=== PATIENT | female | born 1935 | race Caucasian/White ===

== ENCOUNTER → 2018-06-04 | Outpatient (REF) | payer MEDICARE ==
[~2018-06-04] MED LIST: ALENDRONATE35 MG PO; AMOXICILLIN/PO500 MG PO; ASPIRIN 8181 MG PO; AUGMENTIN875TAB OR; BABY ASPIRIN81 MG PO; BOOSTRIX IM; CALCIUM 6001 TAB PO; CALCIUM CHEL1 CAP OR; CIPROFLOXACN500 MG PO; DESOXIMETAS0.05 % EX; FISH OIL1000 MG PO; FLEXERIL PO; FLEXERIL5 M1 PO; FLUZONE SPLT1 M1 IM; IRON325 M1; KEFLEX500 MG PO; LISINOPRIL5 MG PO; LORTAB 10 PO; MUPIROCIN2 % EX; NAPROSYN500 MG PO; NORVASC PO; NORVASC5 MG PO; PREDNISONE1 MG; PREDNISONE1 MG PO; PREDNISONE10 MG PO; PREDNISONE20 MG PO; PREDNISONE5 MG PO; RECLAST5 MG/100 M IV; RED YEAST XX; ROCEPHIN 1 GM1 GM IM; SMZ-TMP DS1 TAB PO; TRAMADOL HCL50 MG PO; VITAMIN D2000 UNI2 PO; VITAMIN E100 UNI1 OR
[2018-06-04 09:42] LABS: HEMATOCRIT 40.8 % (37.0-47.0); HEMOGLOBIN 12.9 g/dl (12.0-16.0); IMMATURE GRANULOCYTES 0.5 % (0.0-5.0); MEAN CELL VOLUME 91.7 fL CALC (80.0-100.0); MEAN CORPUSCULAR HGB CONC 31.6 g/L CALC (32.0-36.0); NEUT# 7.33 thou/uL (2.00-7.15); RED BLOOD COUNT 4.45 mill/uL (4.20-5.60); RED CELL DISTRI WIDTH 13.4 % (11.5-15.5)
[2018-06-04 10:07] LABS: BILIRUBIN, TOTAL 0.5 mg/dL (0.0-1.4); CREATININE 1.1 mg/dL (0.5-1.0); POTASSIUM 4.3 mmol/l (3.5-5.1); TOTAL PROTEIN 7.6 g/dL (6.3-8.2)
== END | disposition home or self-care (01) ==
LOC: BD 08:56
PROVIDERS: ATTEND Nurse Practitioner Family
DX: Z13.820 Encounter for screening for osteoporosis (principal); I10 Essential (primary) hypertension; N95.1 Menopausal and female climacteric states

== ENCOUNTER 2020-08-27 15:49 | Inpatient (IN) | payer MEDICARE ==
[~2020-08-27] VITALS: Ht 172.7 cm; Wt 85.0 kg
--- NOTE | 2020-08-27 15:49 | NUR ---
PATIENT TO ROOM VIA EMS AND PHYSICIAN AT BEDSIDE FOR EVAL
--- NOTE | 2020-08-27 16:00 | NUR ---
PT REPORTS GETTING UP TO BR TODAY AND FELL DOWN, PT UNSURE OF SYNCOPAL EPISODE. VOMITING X 3 DAYS, DIZZINESS/FAINT. PT ALERT AND ORIENTED X 2. SKIN HOT AND DRY. FEVER @ 101 TEMPORAL. RESP EVEN AND UNLABORED. PERRL. LS CTA.
--- NOTE | 2020-08-27 16:15 | NUR ---
STRAIGHT CATH PERFORMED VIA STERILE TECHNIQUE, PT TOLERATED WELL. URINE SPECIMEN OBTAINED.
[2020-08-27 16:17] LABS: HEMATOCRIT 41.8 % (37.0-47.0); HEMOGLOBIN 13.4 g/dl (12.0-16.0); IMMATURE GRANULOCYTES 0.6 % (0.0-5.0); MEAN CELL VOLUME 89.7 fL CALC (80.0-100.0); MEAN CORPUSCULAR HGB 28.8 pG CALC (26.0-32.0); MEAN CORPUSCULAR HGB CONC 32.1 g/dL CAL (32.0-36.0); NEUT# 10.74 thou/uL (2.00-7.15); RED BLOOD COUNT 4.66 mill/uL (4.20-5.60); RED CELL DISTRI WIDTH 14.3 % (11.5-15.5)
[2020-08-27 16:22] LABS: URINE BLOOD DIPSTICK LARGE (NEGATIVE); URINE GLUCOSE - DIPSTICK NEGATIVE (NEGATIVE); URINE KETONE 15 mg/dL (NEGATIVE); URINE LEUK ESTERASE NEGATIVE (NEGATIVE); URINE PROTEIN - DIPSTICK 100 mg/dL (NEG-TRACE); URINE SPECIFIC GRAVITY >=1.030
[2020-08-27 16:26] LABS: URINE BILIRUBIN - DIPSTICK SMALL (NEGATIVE); URINE NITRITE - DIPSTICK NEGATIVE (Negative)
[2020-08-27 16:27] LABS: URINE COLOR DK. YELLOW
[2020-08-27 16:33] LABS: URINE SQUAMOUS EPITHELIAL CELL FEW EPI/hpf (0-FEW); URINE WBC 0-2 WBC/hpf (0-5)
[2020-08-27 16:33] LABS: ALBUMIN 3.9 g/dL (3.2-5.0); CREATININE 1.1 mg/dL (0.5-1.0); TOTAL PROTEIN 7.6 g/dL (6.3-8.2)
[2020-08-27 16:35] LABS: BILIRUBIN, TOTAL 0.9 mg/dL (0.0-1.4); POTASSIUM 3.5 mmol/l (3.5-5.1)
--- NOTE | 2020-08-27 16:35 | NUR ---
NIH PERFORMED SCORED AT 0 WITH NO NEURO DEFICITS. PT AND DO REPORT CONTINUED UNSTEADY GAIT OVER THE LAST [address] PRESLEY NOTIFIED.
--- NOTE | 2020-08-27 17:35 | NUR ---
PT RESTING ON STRETCHER IN NAD. RESP EVEN AND UNLABORED. SKIN HOT AND DRY. DISCUSSED WITH PT CONT WAIT TIME FOR RESULTS. VERBALIZED UNDERSTANDING. DENIES ANY NEEDS. TRAFFIC RATE COMPUTER IN PLACE. CALL LIGHT WITHIN REACH.
--- NOTE | 2020-08-27 18:00 | NUR ---
PT TEMP RECHECK OF 98.6-- DR PRESLEY NOTIFIED.
--- NOTE | 2020-08-27 18:30 | NUR ---
PT'S O2 SAT RANGING FROM 92-94% ON RA. PT VOICES NO COMPLAINTS OF SOB AT THIS TIME. DR PRESLEY NOTIFIED AND ORDER FOR ABG PLACED.
--- NOTE | 2020-08-27 19:37 | NUR ---
REPORT GIVEN TO GEETHA, MEDICAL PATIENT BEING HOUSED IN ICU. LEAVING ER IN NO DISTRESS. ALERT, ORIENTED VSS.
[2020-08-27 20:00] VITALS: BP 119/58
--- NOTE | 2020-08-27 21:25 | NUR ---
PATIENT ADMITTED FROM ER VIA STRETCHER WITH ER STAFF IN ATTENDANCE. PATIENT IS ABLE TO TRANSFER HERSELF INTO THE BED. PATIENT IS AWAKE ALERT AND ORIENTEDX3. ADMITTED FOR SYNCOPE, WITH NEAR FALL AT HOME, FEVER AND ELEVATED LIVER ENZYMES. PATIENT STATES THAT HER SX STARTED ON LAST FRIDAY WITH MULTIPLE EPISODES OF VOMITTING THAT HAS SINCE STOPPED FOLLOWED BY EXTREME WEAKNESS. TODAY AT HOME TRYING TO GO TO THE SHE SLID HERSELF TO THE FLOOR DUE TO SEVERE WEAKNESS-NO LOC, NO HIT ON THE HEAD. 911 WAS CALLED. PATIENT LIVES WITH HER ELDERLY . PATIENT ON TELE-INITIAL READING SR-76. IVF NS HUNG AND INFUSING VIA RAC AT 100CC/HR. SALINE LOCK TO LAC INTACT-FLUSHED PER PROTOCOL. FEBRILE IN ER BUT AFERILE AT THISTIME. PATIENT DENIES ANY NAUSEA AT THIS TIME. STATES THAT HER LAST BM WAS ALSO -NO DIARRHEA JUST REGULAR BM. ABD IS SOFT WITH ACTIVE BS. LUNGS ARE CLEAR. PATIENT DECLINES ANY DINNER AT THISTIME. JUST TAKING PO FLUIDS. PATIENT ORIENTED TO ROOM AND SURROUNDINGS. SAFETY PRECAUTIONS REINFORCED. CALL LIGHT IN REACH. WILL CONT TO MONITOR.
--- NOTE | 2020-08-27 23:52 | NUR ---
PATIENT RESTING IN BED POSITIIONED ON LEFT SIDE WITH EYES CLOSED. RESPS ARE EVEN AND UNLABORED. ZOSYN HUNG AND INFUSING VIA RAC SITE. TELE MONITOR IN PLACE. CALL LIGHT IN REACH. WILL CONT TO MONITOR.
[2020-08-28] VITALS: BP 107/52
--- NOTE | 2020-08-28 03:02 | NUR ---
BED ALARM GOING OFF-PATIENT CONT TO BE RESTLESS IN BED. PATIENT TURNED AND REPOSITIONED ON LEFT SIDE. IV TO LEFT WRIST REMAINS INTACT WITH IVF 1/2NS PATENT AND INFUSING AT 50CC/HR. MOREIRA REMAINS PATENT AND DRAINING YELLOW URINE. BED ALARM BACK IN PLACE. CALL LIGHT IN REACH. WILL CONT TO MONITOR.
--- NOTE | 2020-08-28 03:04 | NUR ---
PATIENT CONT TO REST IN BED WITH EYES CLOSED AND RESPS EVEN AND UNLABORED. IVF PATENT AND INFUSING VIA RIGHT AC SITE AT 100CC/HR. TELE MONITOR IN PLACE. CALL LIGHT IN REACH. WILL CONT TO MONITOR.
[2020-08-28 04:00] VITALS: BP 141/60
--- NOTE | 2020-08-28 04:42 | NUR ---
PATIENT ASSISTED OOB TO THE BSC TO VOID 300CC OF DARK JOSÉ MIGUEL URINE. UNSTEADY ON HER FEET. ASSISTED BACK INTO BED. TELE MONITOR IN PLACE-LAST READING SR-92 OCC PVC'S. DENIES ANY CHEST PAIN OR SOB. IVF NS PATENT AND INFUSING VIA RAC SITE AT 100CC/HR. SITE REMAINS HEALTHY AT THIS TIME. SAFETY PRECAUTIONS REINFORCED. CALL LIGHT IN REACH. WILL CONT TO MONITOR
[2020-08-28 05:09] LABS: HEMATOCRIT 40.6 % (37.0-47.0); HEMOGLOBIN 12.8 g/dl (12.0-16.0); IMMATURE GRANULOCYTES 0.4 % (0.0-5.0); MEAN CELL VOLUME 92.5 fL CALC (80.0-100.0); MEAN CORPUSCULAR HGB 29.2 pG CALC (26.0-32.0); MEAN CORPUSCULAR HGB CONC 31.5 g/dL CAL (32.0-36.0); NEUT# 11.74 thou/uL (2.00-7.15); RED BLOOD COUNT 4.39 mill/uL (4.20-5.60); RED CELL DISTRI WIDTH 14.3 % (11.5-15.5)
[2020-08-28 05:21] LABS: ANION GAP 15 (6-22 (CALC)); BUN 21 mg/dL (8-23); BUN/CREATININE RATIO 23 (12-20 (CALC)); CARBON DIOXIDE 21 mmol/l (22-30); CHLORIDE 102 mmol/l (95-108); CREATININE 0.9 mg/dL (0.5-1.0); GFR 60 ML/MIN (>=60 (CALC)); GFR FOR AFR.AMER. > 60 ML/MIN (>=60 (CALC)); POTASSIUM 3.3 mmol/l (3.5-5.1); SODIUM 134 mmol/l (137-146)
--- NOTE | 2020-08-28 07:00 | NUR ---
PT REPORT RECEIVED FROM NIGHT NURSEGEETHA.
--- NOTE | 2020-08-28 08:00 | NUR ---
PT WAS FOUND RESTING IN BED;PT IS A&OX3;VS AND ASSESSMENT WERE COMPLETED;PT HAD NO REPORTS OF PAIN AT THIS TIME;HEART SOUNDS ARE REGULAR IN RATE AND RHYTHM;TELE IS IN PLACE;LUNG SOUNDS ARE CLEAR;RESPIRATIONS ARE EVEN AND UNLABORED ON RA;#20G IV IN LAC IS EMS SITE, SL, PATENT AND FREE OF COMPLICATIONS AT THIS TIME;#20G IV IN RAC IS RUNNING NS@100ML/HR;IV SITE APPEARS FREE OF COMPLICATIONS AT THIS TIME;PT SKIN INTACT;NO EDEMA NOTED;SAFETY PRECAUTIONS IN PLACE;CALL LIGHT WITHIN REACH;BED IN LOWEST POSITION;WILL CONTINUE TO MONITOR.
[2020-08-28 10:45] VITALS: BP 118/63
--- NOTE | 2020-08-28 12:00 | NUR ---
PT WAS FOUND RESTING IN BED EATING LUNCH;PT IS ALERT AND ORIENTED AND REPORTING NO PAIN AT THIS TIME;TELE IS IN PLACE;SAFETY PRECAUTIONS IN PLACE;CALL LIGHT WITHIN REACH;BED IN LOWEST POSITION;WILL CONTINUE TO MONITOR.
[2020-08-28] MEDS ORDERED: FISH OIL1 CAP PO (13:12)
[2020-08-28] MEDS ORDERED: CALCIUM600 M1 PO (13:13)
--- NOTE | 2020-08-28 13:25 | NUR ---
PRELIM BLOOD CX RESULTS SHOW GRAM NEGATIVE RODS IN 2/4 VIALS. REPORTED TO [facility]. PT IS ON ZITHROMAX AND ZOSYN. WILL F/U WITH FINAL
--- NOTE | 2020-08-28 14:17 | NUR ---
PT TRANSPORTED VIA STRETCHER IN STABLE CONDITION TO CT ACCOMPANIED BY STAFF
[2020-08-28 14:35] VITALS: BP 119/66
--- NOTE | 2020-08-28 16:00 | NUR ---
PT WAS HELPED TO BSC;PT AT BEDSIDE;CALL LIGHT WITHIN REACH;TELE IN PLACE;#20G IV IN LAC IS RUNNING NS@100ML/HR;IV SITE APPEARS FREE OF COMPLICATIONS AT THIS TIME;SAFETY PRECAUTIONS IN PLACE;WILL CONTINUE TO MONITOR.
--- NOTE | 2020-08-28 18:30 | NUR ---
PT VS WERE TAKEN AND PT WAS FOUND TO HAVE AN O2 SAT OF 87%;PT WAS EXPERIENCING NO LABORED RESPIRATIONS OR DIFFICULTY BREATHING AT THE TIME;PLACED PT ON O2 VIA NC@2L;WILL CONTINUE TO MONITOR O2 AND TITRATE NEEDED.
[2020-08-28 19:00] VITALS: BP 120/62
--- NOTE | 2020-08-28 19:15 | NUR ---
WALKED INTO PT ROOM AND FOUND PT OUT OF BED ATTEMPTED TO PIVOT TO BSC;QUICKLY RAN TO PT TO ASSIST WITH TRANSFER AND WAS ABLE TO HOLD PT HER LEGS WEAKENED AND ASSISTED PT TO SLOWLY LOWER TO THE FLOOR;PT WAS INCONTINENT OF STOOL AT THE TIME AND WAS TRYING TO MAHER TO THE BSC WITHOUT ASSISTANCE;PT IS REPORTING NO PAIN OR INJURIES;NO INJURIES OBSERVED ON PT WELL;CALLED FOR ASSISTANCE AND WE WERE ABLE TO ASSIST PT UP TO COMMODE TO FINISH BM;PT WAS RE-EDUCATED ON SAFETY AND FALL PRECAUTIONS;PT ENCOURAGED TO CALL FOR ASSISTANCE EACH AND EVERY TIME;BED ALARM WAS ALSO TURNED ON AT THIS TIME.
--- NOTE | 2020-08-28 20:10 | NUR ---
PHYSICAL ASSESMENT COMPLETE. PT CURRENTLY DENIES PAIN OR DISCOMFORT. SCHEDULED MEDICATIONS AND PRN MEDICATION ADMINISTERED, SEE E-MAR. PT DENIES ANY NEEDS AT THIS TIME. PLAN OF CARE REVIEWED, PT DENIES QUESTIONS, VERBALIZES UNDERSTANDING. ITEMS WITHIN REACH, BED LOCKED IN LOW POSITION W/ BEDRAILS UP X2. CALL RODRIGUEZ WITHIN REACH, AGREES TO CALL PRN.
--- NOTE | 2020-08-29 00:26 | NUR ---
PT RESTING IN BED, NO SIGNS OF DISTRESS NOTED, RESP EVEN AND UNLABORED. PT VOICES NO NEEDS OR COMPLAINTS AT THIS TIME. CALL LIGHT IN REACH, CONTINUE TO MONITOR.
[2020-08-29 04:00] VITALS: BP 84/49
--- NOTE | 2020-08-29 04:42 | NUR ---
PT LAYING IN BED WITH EYES CLOSED, APPEARS TO BE SLEEPING, APPEARS COMFORTABLE AND IN NO DISTRESS. RESPIRATIONS REGULAR AND UNLABORED. ITEMS REMAIN WITHIN REACH, CALL RODRIGUEZ REMAINS WITHIN REACH. BED REMAINS LOCKED AND IN LOW POSITION WITH BEDRAILS UP X2. WILL CONTINUE TO MONITOR.
[2020-08-29 04:54] LABS: MEAN CELL VOLUME 92.8 fL CALC (80.0-100.0); MEAN CORPUSCULAR HGB 28.9 pG CALC (26.0-32.0); MEAN CORPUSCULAR HGB CONC 31.2 g/dL CAL (32.0-36.0); RED BLOOD COUNT 3.49 mill/uL (4.20-5.60); RED CELL DISTRI WIDTH 14.3 % (11.5-15.5)
[2020-08-29 04:55] LABS: HEMATOCRIT 32.4 % (37.0-47.0); HEMOGLOBIN 10.1 g/dl (12.0-16.0)
[2020-08-29 05:16] LABS: ALKALINE PHOSPHATASE 102 u/l (38-126); BUN 18 mg/dL (8-23); BUN/CREATININE RATIO 20 (12-20 (CALC)); CHLORIDE 101 mmol/l (95-108); CREATININE 0.9 mg/dL (0.5-1.0); GFR 60 ML/MIN (>=60 (CALC)); GFR FOR AFR.AMER. > 60 ML/MIN (>=60 (CALC)); POTASSIUM 3.1 mmol/l (3.5-5.1); SGOT/AST 67 u/l (9-36); SODIUM 132 mmol/l (137-146)
[2020-08-29 05:17] LABS: ALBUMIN 2.5 g/dL (3.2-5.0); ANION GAP 8 (6-22 (CALC)); BILIRUBIN, TOTAL 0.5 mg/dL (0.0-1.4); CARBON DIOXIDE 26 mmol/l (22-30); TOTAL PROTEIN 5.4 g/dL (6.3-8.2)
--- NOTE | 2020-08-29 07:50 | NUR ---
WENT TO CHANGE IV FLUIDS. IV SITE STARTED TO KINK UNABLE TO FIX. TOOK IV SITE OUT.
[2020-08-29 08:20] VITALS: BP 108/53
--- NOTE | 2020-08-29 08:20 | NUR ---
ASSESSMENT IS COMPLETED IV SITE STARTED COMING OUT WILL CHANGE . HR IS REG,PULSES ARE STRONG X4, ABD IS SOFT WITH ACTIVE BS. BREATH SOUNDS ARE CLEAR,BILATERALLY. TELE MONITOR IN PLACE.
[2020-08-29 10:56] VITALS: BP 91/55
--- NOTE | 2020-08-29 12:30 | NUR ---
PT HAS BEEN RELAXING IN BED WITH NO DISTRESS NOTED. IV SITE IS FREE FROM REDNESS OR EDEMA.
[2020-08-29 15:20] VITALS: BP 91/55
--- NOTE | 2020-08-29 16:30 | NUR ---
PT IS RELAXING IN BED WITH NO DISTRESS NOTED. IV SITE IS FREE FROM REDNESS OR EDEMA.
[2020-08-29 19:00] VITALS: BP 96/60
[2020-08-30] VITALS: BP 100/59
[2020-08-30 04:00] VITALS: BP 95/54
[2020-08-30 04:52] LABS: HEMOGLOBIN 9.2 g/dl (12.0-16.0); MEAN CELL VOLUME 90.9 fL CALC (80.0-100.0); MEAN CORPUSCULAR HGB 28.8 pG CALC (26.0-32.0); MEAN CORPUSCULAR HGB CONC 31.7 g/dL CAL (32.0-36.0); RED BLOOD COUNT 3.19 mill/uL (4.20-5.60); RED CELL DISTRI WIDTH 14.4 % (11.5-15.5)
[2020-08-30 05:10] LABS: ALBUMIN 2.4 g/dL (3.2-5.0); ALKALINE PHOSPHATASE 107 u/l (38-126); ANION GAP 5 (6-22 (CALC)); BILIRUBIN, TOTAL 0.3 mg/dL (0.0-1.4); BUN 15 mg/dL (8-23); BUN/CREATININE RATIO 16 (12-20 (CALC)); CARBON DIOXIDE 24 mmol/l (22-30); CHLORIDE 107 mmol/l (95-108); CREATININE 0.9 mg/dL (0.5-1.0); GFR 60 ML/MIN (>=60 (CALC)); GFR FOR AFR.AMER. > 60 ML/MIN (>=60 (CALC)); POTASSIUM 3.2 mmol/l (3.5-5.1); SGOT/AST 58 u/l (9-36); SODIUM 133 mmol/l (137-146); TOTAL PROTEIN 5.1 g/dL (6.3-8.2)
--- NOTE | 2020-08-30 07:37 | NUR ---
PT IS CONCERNED ABOUT GOING HOME , INFORMED THAT SHE NEEDS TO SPEAK WITH MD ABOUT HAVING PT COME AND SEE HER.
[2020-08-30 07:50] VITALS: BP 109/51
--- NOTE | 2020-08-30 07:50 | NUR ---
ASSESSMENT IS COMPLETED: IV SITE IS FREE FROM REDNESS OR EDEMA. HR IS REG,PULSES ARE STRONG X4, ABD IS SOFT WITH ACTIVE BS. BREATH SOUNDS ARE WHEEZING , PT C/O "TOO MUCH FLUID". O2 @ 2LITERS WITH NC. TELE MONITOR IN PLACE.
--- NOTE | 2020-08-30 08:05 | NUR ---
PT C/O "FEELING WHEEZY, AND THE WATER IS IN HER CHEST" TURNED IV FLUIDS DOWN TO KVO
--- NOTE | 2020-08-30 10:15 | NUR ---
SPOKE WITH DR LEVINE RE: PT C/O FEELING WHEEZING AND FULL OF WATER IN HER CHEST. LASIX WAS ORDERED AND GIVEN AT 1030
[2020-08-30] MEDS ORDERED: Levaquin PO (10:28)
[2020-08-30 11:00] VITALS: BP 106/73
--- NOTE | 2020-08-30 11:00 | NUR ---
PT DID GET UP TO VOID 300 AFTER LASIX WAS GIVEN. AT 1215 PT WAS READY TO GO HOME. NO MORE WHEEZING NOTED. AND ABLE TO VOID.
--- NOTE | 2020-08-30 12:30 | NUR ---
IV SITE REMOVED AND CATHETER INTACT. NO REDNESS OR EDEMA. TELE MONITOR TAKEN OFF. DISCHARGE INSTRUCTIONS GIVEN AND VERBALIZED UNDERSTANDING.
--- NOTE | 2020-08-30 13:00 | NUR ---
DISCHARGE INSTRUCTIONS GIVEN AND VERBALIZED UNDERSTANDING. Discharge instructions given. Patient verbalizes understanding of same. Discharged in stable condition via Wheelchair to Home with family. All belongings sent with pt.
== END 2020-08-30 13:05 | disposition home health service (06) | DRG 872 ==
LOC: ED 15:49 → ED-I 18:15 → ED 18:30 → ICU 18:31 → MS2 08-28 07:52
PROVIDERS: Emergency Medicine; ADMIT Internal Medicine; ATTEND Internal Medicine
DX: A41.59 Other Gram-negative sepsis (principal); R74.01 Elevation of levels of liver transaminase levels; I10 Essential (primary) hypertension; M35.3 Polymyalgia rheumatica; E87.6 Hypokalemia; Z79.52 Long term (current) use of systemic steroids; Z20.822 Contact with and (suspected) exposure to COVID-19
CPT/HCPCS: Q9967

== ENCOUNTER 2020-09-13 12:12 | Emergency (ER) | payer MEDICARE ==
[~2020-09-13] VITALS: Ht 172.7 cm; Wt 79.0 kg
[~2020-09-13 12:12] MED LIST changes: +CALCIUM600 M1 PO; +FISH OIL1 CAP PO; +Levaquin PO
[2020-09-13 13:01] LABS: IMMATURE GRANULOCYTES 0.5 % (0.0-5.0); MEAN CELL VOLUME 93.4 fL CALC (80.0-100.0); MEAN CORPUSCULAR HGB 29.6 pG CALC (26.0-32.0); MEAN CORPUSCULAR HGB CONC 31.7 g/dL CAL (32.0-36.0); NEUT# 8.71 thou/uL (2.00-7.15); RED BLOOD COUNT 2.13 mill/uL (4.20-5.60); RED CELL DISTRI WIDTH 14.7 % (11.5-15.5)
[2020-09-13 13:08] LABS: HEMATOCRIT 19.9 % (37.0-47.0); HEMOGLOBIN 6.3 g/dl (12.0-16.0)
[2020-09-13] MEDS ORDERED: PREDNISONE1 MG PO (13:10)
[2020-09-13] MEDS ORDERED: NORVASC5 M1 PO (13:11)
[2020-09-13 13:18] VITALS: BP 103/48
[2020-09-13 13:26] VITALS: BP 106/51
[2020-09-13 13:30] LABS: ALBUMIN 2.6 g/dL (3.2-5.0); BILIRUBIN, TOTAL 0.2 mg/dL (0.0-1.4); CREATININE 1.2 mg/dL (0.5-1.0); POTASSIUM 3.7 mmol/l (3.5-5.1); TOTAL PROTEIN 5.2 g/dL (6.3-8.2)
[2020-09-13 13:36] VITALS: BP 97/45
[2020-09-13 17:14] VITALS: BP 97/45
== END 2020-09-13 13:41 | disposition short-term general hospital (02) ==
LOC: ED 12:12
PROVIDERS: Family Medicine
PROC: 30233N1 Transfusion of Nonautologous Red Blood Cells into Peripheral Vein, Percutaneous Approach (ICD-10-PCS; principal; 2020-09-13)
DX: I21.3 ST elevation (STEMI) myocardial infarction of unspecified site (principal); I10 Essential (primary) hypertension
CPT/HCPCS: P9016

== ENCOUNTER 2020-10-02 10:27 | Emergency (ER) | payer MEDICARE ==
[~2020-10-02] VITALS: Ht 172.7 cm; Wt 84.5 kg
[~2020-10-02 10:27] MED LIST changes: +NORVASC5 M1 PO
[2020-10-02] MEDS ORDERED: ASPIRIN81 MG PO (10:42)
[2020-10-02] MEDS ORDERED: KAPSPARGO SPRIN25 MG (10:43)
[2020-10-02] MEDS ORDERED: LISINOPRIL10 MG PO (10:43)
[2020-10-02] MEDS ORDERED: LIPITOR40 M1 PO (10:43)
[2020-10-02] MEDS ORDERED: SUCRALFATE1 GM PO (10:44)
[2020-10-02] MEDS ORDERED: FUROSEMIDE20 MG PO (10:44)
[2020-10-02] MEDS ORDERED: ISOSORB MONO20 MG PO (10:44)
[2020-10-02 10:47] LABS: IMMATURE GRANULOCYTES 0.3 % (0.0-5.0); MEAN CELL VOLUME 91.3 fL CALC (80.0-100.0); MEAN CORPUSCULAR HGB 28.4 pG CALC (26.0-32.0); MEAN CORPUSCULAR HGB CONC 31.1 g/dL CAL (32.0-36.0); NEUT# 15.71 thou/uL (2.00-7.15); RED BLOOD COUNT 3.45 mill/uL (4.20-5.60); RED CELL DISTRI WIDTH 16.6 % (11.5-15.5)
[2020-10-02 10:49] LABS: HEMATOCRIT 31.5 % (37.0-47.0); HEMOGLOBIN 9.8 g/dl (12.0-16.0)
[2020-10-02 11:01] LABS: ALBUMIN 2.9 g/dL (3.2-5.0); CREATININE 1.7 mg/dL (0.5-1.0); TOTAL PROTEIN 6.1 g/dL (6.3-8.2)
[2020-10-02 11:04] LABS: BILIRUBIN, TOTAL 1.2 mg/dL (0.0-1.4); POTASSIUM 2.7 mmol/l (3.5-5.1)
[2020-10-02 12:06] LABS: ACT PARTIAL THROMBO TIME 25.9 SECONDS (20.0-32.5)
[2020-10-02 12:31] LABS: INTERNATIONAL NORMALIZED RATIO 1.4 RATIO (0.7-1.3); PROTHROMBIN TIME 14.6 SECONDS (9.0-12.5)
[2020-10-02 13:20] VITALS: BP 120/67
== END 2020-10-02 13:29 | disposition short-term general hospital (02) ==
LOC: ED 10:27
PROVIDERS: Emergency Medicine
DX: J18.9 Pneumonia, unspecified organism (principal); R79.89 Other specified abnormal findings of blood chemistry; E87.6 Hypokalemia; I10 Essential (primary) hypertension; Z20.822 Contact with and (suspected) exposure to COVID-19
CPT/HCPCS: J1644